=== PATIENT | female | born 1970 | race Asian ===

== ENCOUNTER 2019-02-06 19:14 | Inpatient (IN) | payer MEDICAID ==
[~2019-02-06] VITALS: Ht 162.6 cm; Wt 66.0 kg
[2019-02-07] MEDS ORDERED: NO HOME MEDS (00:03)
[2019-02-07] MEDS: normal saline 1000ml 1,000 ML IV SCH (01:19)
[2019-02-07 14:35] VITALS: BP 100/63
[2019-02-07 14:44] LABS: BASOPHILS % (AUTO) 0.7 % (0-1); EOSINOPHILS # (AUTO) 0.1 X10'3 (0-0.9); EOSINOPHILS % (AUTO) 1.7 % (0-6); HEMATOCRIT 34.4 % (35.0-45.0); LYMPHOCYTES # (AUTO) 1.2 X10'3 (1.1-4.8); LYMPHOCYTES % (AUTO) 23.9 % (21-51); MEAN CORPUSCULAR HEMOGLOBIN 32.7 PG (27.0-31.0); MEAN CORPUSCULAR HGB CONC 34.8 g/dL (33.0-36.5); MEAN PLATELET VOLUME 7.9 FL (7.4-10.4); MONOCYTES # (AUTO) 0.4 X10'3 (0-0.9); MONOCYTES % (AUTO) 8.7 % (2-12); NEUTROPHILS # (AUTO) 3.3 X10'3 (1.8-7.7); PLATELET COUNT 315 X10'3 (140-440); RED BLOOD COUNT 3.66 X10'6 (4.20-5.60); RED CELL DISTRIBUTION WIDTH 13.7 % (11.5-14.5); WHITE BLOOD COUNT 5.1 X10'3 (4.5-11.0)
[2019-02-07 15:00] LABS: ALANINE AMINOTRANSFERASE 256 U/L (12-78); ALBUMIN 3.1 G/DL (3.4-5.0); ALKALINE PHOSPHATASE 99 IU/L (46-116); ANION GAP 10 (8-16); ASPARTATE AMINO TRANSFERASE 146 U/L (10-37); BILIRUBIN,TOTAL 4.7 MG/DL (0.1-1.0); BLOOD UREA NITROGEN 12 MG/DL (7-18); BUN/CREATININE RATIO 15.8 (6.6-38.0); CALCIUM 8.4 MG/DL (8.5-10.1); CHLORIDE 106 MMOL/L (99-107); CREATININE 0.76 MG/DL (0.40-0.90); GLUCOSE 132 MG/DL (70-104); POTASSIUM 3.4 MMOL/L (3.5-5.1); SODIUM 142 MMOL/L (135-145); TOTAL CARBON DIOXIDE 26.1 MMOL/L (24-32); eGFR 82 ML/MIN
[2019-02-07 15:02] LABS: ALBUMIN/GLOBULIN RATIO 0.8 (1.1-1.5); TOTAL PROTEIN 6.9 G/DL (6.4-8.2)
--- NOTE | 2019-02-07 18:26 | NUR ---
Problems reprioritized. Patient report given, questions answered & plan of care reviewed with KYRIE NAVARRO.
[2019-02-07 19:00] VITALS: BP 94/50
[2019-02-07] MEDS ORDERED: diphenhydrAMINE 25mg capsule PO PRN (22:20)
[2019-02-07] MEDS: acetaminophen 325mg tablet PO PRN (22:33)
[2019-02-08] VITALS (21 sets, daily range): BP systolic 84–124; BP diastolic 46–73
[2019-02-08 07:17] LABS: BASOPHILS # (AUTO) 0.1 X10'3 (0-0.2); BASOPHILS % (AUTO) 0.9 % (0-1); EOSINOPHILS # (AUTO) 0.1 X10'3 (0-0.9); EOSINOPHILS % (AUTO) 2.3 % (0-6); HEMATOCRIT 34.7 % (35.0-45.0); LYMPHOCYTES # (AUTO) 1.4 X10'3 (1.1-4.8); LYMPHOCYTES % (AUTO) 24.8 % (21-51); MEAN CORPUSCULAR HEMOGLOBIN 32.6 PG (27.0-31.0); MEAN CORPUSCULAR HGB CONC 34.7 g/dL (33.0-36.5); MEAN CORPUSCULAR VOLUME 93.8 FL (78-98); MONOCYTES # (AUTO) 0.5 X10'3 (0-0.9); MONOCYTES % (AUTO) 8.5 % (2-12); NEUTROPHILS # (AUTO) 3.6 X10'3 (1.8-7.7); NEUTROPHILS % (AUTO) 63.5 % (42-75); PLATELET COUNT 315 X10'3 (140-440); RED CELL DISTRIBUTION WIDTH 13.5 % (11.5-14.5); WHITE BLOOD COUNT 5.6 X10'3 (4.5-11.0)
[2019-02-08 07:22] LABS: HBSAG SCREEN Negative (Negative); HEP A AB, IGM Negative (Negative); HEP B CORE AB, IGM Negative (Negative); HEPATITIS C ANTIBODY <0.1 s/co ratio (0.0-0.9)
[2019-02-08 07:29] LABS: ALANINE AMINOTRANSFERASE 293 U/L (12-78); ALKALINE PHOSPHATASE 102 IU/L (46-116); ANION GAP 9 (8-16); ASPARTATE AMINO TRANSFERASE 188 U/L (10-37); BILIRUBIN,TOTAL 5.6 MG/DL (0.1-1.0); BLOOD UREA NITROGEN 13 MG/DL (7-18); BUN/CREATININE RATIO 16.5 (6.6-38.0); CALCIUM 8.7 MG/DL (8.5-10.1); CHLORIDE 106 MMOL/L (99-107); CREATININE 0.79 MG/DL (0.40-0.90); GLUCOSE 99 MG/DL (70-104); POTASSIUM 4.1 MMOL/L (3.5-5.1); SODIUM 141 MMOL/L (135-145); TOTAL CARBON DIOXIDE 25.9 MMOL/L (24-32); eGFR 78 ML/MIN
[2019-02-08 07:32] LABS: ALBUMIN/GLOBULIN RATIO 0.8 (1.1-1.5); TOTAL PROTEIN 6.9 G/DL (6.4-8.2)
[2019-02-08] MEDS ORDERED: LIDOcaine Viscous 15ml cup ONE (11:16)
[2019-02-08] MEDS ORDERED: iohexol 300 MG/1 ML 50ml polymer ONE (11:16)
[2019-02-08] MEDS ORDERED: MIDAZolam 5mg/5ml vial ONE (11:16)
[2019-02-08] MEDS ORDERED: glucagon, human recombinant 1mg kit ONE (11:16)
[2019-02-08] MEDS ORDERED: fentaNYL/PF 50MCG/1 ML 2ML syringe ONE (11:16)
[2019-02-08] MEDS ORDERED: levoFLOXACIN-Levaquin 500mg/D5 100 ML IV ONE (13:38)
[2019-02-08] MEDS: ondansetron/PF 4mg/2ml inj IV PRN (15:47)
[2019-02-08 17:09] LABS: CARCINOEMBRYONIC ANTIGEN 2.1 ng/mL (0.0-4.7)
--- NOTE | 2019-02-08 18:16 | NUR ---
Problems reprioritized. Patient report given, questions answered & plan of care reviewed with KYRIE NAVARRO.
[2019-02-08] MEDS: normal saline 1000ml 1,000 ML IV SCH ×2 (19:03→19:04)
[2019-02-08] MEDS: acetaminophen 325mg tablet PO PRN (19:04)
--- NOTE | 2019-02-08 23:50 | NUR ---
Pt experiencing mid epigastric pain. Pt does not want anything IV. Labs were reviewed with Hospitalist animal nutrition consultant and pt was ordered Brad. Addendum: 02/09/19 at 0406 by Mandy Goodson RN Amended: Links added.
[2019-02-08] MEDS: HYDROcodone/acetaminophen 5mg/325mg tablet PO PRN (23:56)
[2019-02-09] VITALS: BP 104/65
[2019-02-09] MEDS: normal saline 1000ml 1,000 ML IV SCH ×4 (01:04→18:53)
[2019-02-09 04:00] VITALS: BP 100/47
[2019-02-09] MEDS: HYDROcodone/acetaminophen 5mg/325mg tablet PO PRN ×3 (04:42→14:32)
--- NOTE | 2019-02-09 06:09 | NUR ---
Problems reprioritized. Patient report given, questions answered & plan of care reviewed with Radha NAVARRO. Addendum: 02/09/19 at 0609 by Mandy Goodson RN Amended: Links added.
--- NOTE | 2019-02-09 06:37 | NUR ---
Patient in room [facility]. I have received report from Mandy NAVARRO and had the opportunity to ask questions and assume patient care.
[2019-02-09 07:20] VITALS: BP 91/50
[2019-02-09 07:23] LABS: BASOPHILS % (AUTO) 0.3 % (0-1); EOSINOPHILS # (AUTO) 0.1 X10'3 (0-0.9); EOSINOPHILS % (AUTO) 0.7 % (0-6); HEMATOCRIT 32.2 % (35.0-45.0); HEMOGLOBIN 11.3 g/dl (12.0-16.0); LYMPHOCYTES % (AUTO) 12.5 % (21-51); MEAN CORPUSCULAR HEMOGLOBIN 32.8 PG (27.0-31.0); MEAN CORPUSCULAR VOLUME 93.7 FL (78-98); MEAN PLATELET VOLUME 8.2 FL (7.4-10.4); MONOCYTES # (AUTO) 0.5 X10'3 (0-0.9); MONOCYTES % (AUTO) 6.4 % (2-12); NEUTROPHILS # (AUTO) 6.6 X10'3 (1.8-7.7); NEUTROPHILS % (AUTO) 80.1 % (42-75); PLATELET COUNT 291 X10'3 (140-440); RED BLOOD COUNT 3.44 X10'6 (4.20-5.60); RED CELL DISTRIBUTION WIDTH 13.4 % (11.5-14.5); WHITE BLOOD COUNT 8.3 X10'3 (4.5-11.0)
[2019-02-09 07:50] LABS: ALANINE AMINOTRANSFERASE 297 U/L (12-78); ALBUMIN 2.7 G/DL (3.4-5.0); ALKALINE PHOSPHATASE 94 IU/L (46-116); ANION GAP 10 (8-16); ASPARTATE AMINO TRANSFERASE 193 U/L (10-37); BILIRUBIN,TOTAL 5.9 MG/DL (0.1-1.0); BLOOD UREA NITROGEN 10 MG/DL (7-18); BUN/CREATININE RATIO 15.4 (6.6-38.0); CALCIUM 8.2 MG/DL (8.5-10.1); CHLORIDE 107 MMOL/L (99-107); CREATININE 0.65 MG/DL (0.40-0.90); GLUCOSE 89 MG/DL (70-104); POTASSIUM 3.7 MMOL/L (3.5-5.1); SODIUM 140 MMOL/L (135-145); TOTAL CARBON DIOXIDE 23.4 MMOL/L (24-32); eGFR > 90 ML/MIN
[2019-02-09 07:52] LABS: ALBUMIN/GLOBULIN RATIO 0.8 (1.1-1.5); TOTAL PROTEIN 6.3 G/DL (6.4-8.2)
[2019-02-09 08:55] LABS: LIPASE 23105 U/L (73-393)
[2019-02-09 12:00] VITALS: BP 90/50
[2019-02-09 18:00] VITALS: BP 114/69
--- NOTE | 2019-02-09 18:23 | NUR ---
Problems reprioritized. Patient report given, questions answered & plan of care reviewed with Torey NAVARRO.
--- NOTE | 2019-02-09 18:23 | NUR ---
Patient in room [facility]. I have received report from MELANIE Wilkins and had the opportunity to ask questions and assume patient care.
[2019-02-09] MEDS: acetaminophen 325mg tablet PO PRN (18:48)
[2019-02-09] MEDS: ondansetron/PF 4mg/2ml inj IV PRN (18:48)
--- NOTE | 2019-02-09 21:35 | NUR ---
lower posterior lobes diminished Addendum: 02/09/19 at 2140 by David Flores RN Amended: Links added.
[2019-02-10 00:55] VITALS: BP 100/50
[2019-02-10] MEDS: HYDROcodone/acetaminophen 5mg/325mg tablet PO PRN (01:27)
[2019-02-10] MEDS: normal saline 1000ml 1,000 ML IV SCH (03:32)
[2019-02-10 05:19] LABS: BASOPHILS % (AUTO) 0.2 % (0-1); EOSINOPHILS # (AUTO) 0.1 X10'3 (0-0.9); EOSINOPHILS % (AUTO) 1.3 % (0-6); HEMATOCRIT 31.4 % (35.0-45.0); HEMOGLOBIN 10.9 g/dl (12.0-16.0); LYMPHOCYTES # (AUTO) 1.2 X10'3 (1.1-4.8); LYMPHOCYTES % (AUTO) 18.4 % (21-51); MEAN CORPUSCULAR HEMOGLOBIN 32.9 PG (27.0-31.0); MEAN CORPUSCULAR HGB CONC 34.8 g/dL (33.0-36.5); MEAN CORPUSCULAR VOLUME 94.7 FL (78-98); MEAN PLATELET VOLUME 8.3 FL (7.4-10.4); MONOCYTES # (AUTO) 0.4 X10'3 (0-0.9); MONOCYTES % (AUTO) 6.9 % (2-12); NEUTROPHILS # (AUTO) 4.8 X10'3 (1.8-7.7); NEUTROPHILS % (AUTO) 73.2 % (42-75); PLATELET COUNT 280 X10'3 (140-440); RED BLOOD COUNT 3.32 X10'6 (4.20-5.60); RED CELL DISTRIBUTION WIDTH 13.3 % (11.5-14.5); WHITE BLOOD COUNT 6.5 X10'3 (4.5-11.0)
[2019-02-10 05:27] LABS: ALANINE AMINOTRANSFERASE 279 U/L (12-78); ALBUMIN 2.8 G/DL (3.4-5.0); ALKALINE PHOSPHATASE 99 IU/L (46-116); ANION GAP 9 (8-16); ASPARTATE AMINO TRANSFERASE 174 U/L (10-37); BILIRUBIN,TOTAL 5.7 MG/DL (0.1-1.0); BLOOD UREA NITROGEN 7 MG/DL (7-18); BUN/CREATININE RATIO 11.9 (6.6-38.0); CALCIUM 8.3 MG/DL (8.5-10.1); CHLORIDE 107 MMOL/L (99-107); CREATININE 0.59 MG/DL (0.40-0.90); GLUCOSE 85 MG/DL (70-104); POTASSIUM 3.4 MMOL/L (3.5-5.1); SODIUM 142 MMOL/L (135-145); TOTAL CARBON DIOXIDE 25.8 MMOL/L (24-32); eGFR > 90 ML/MIN
[2019-02-10 05:45] LABS: ALBUMIN/GLOBULIN RATIO 0.8 (1.1-1.5); TOTAL PROTEIN 6.4 G/DL (6.4-8.2)
--- NOTE | 2019-02-10 06:16 | NUR ---
Problems reprioritized. Patient report given, questions answered & plan of care reviewed with MELANIE Sharpe.
[2019-02-10 07:11] VITALS: BP 103/62
[2019-02-10] MEDS ORDERED: POTA20TA10 PO (08:53)
[2019-02-10] MEDS ORDERED: PANT40TA4 PO (08:53)
[2019-02-10 11:00] VITALS: BP 96/51
== END 2019-02-10 10:50 | disposition home or self-care (01) | DRG 282 ==
LOC: ER 19:15 → SUR 3N 02-07 13:52 → OBSVTOIN 02-10 08:35
PROVIDERS: ADMIT Internal Medicine; ATTEND Internal Medicine
PROC: 0FC98ZZ Extirpation of Matter from Common Bile Duct, Via Natural or Artificial Opening Endoscopic (ICD-10-PCS; principal; 2019-02-08)
PROC: BF101ZZ Fluoroscopy of Bile Ducts using Low Osmolar Contrast (ICD-10-PCS; 2019-02-08)
PROC: 0FPD8DZ Removal of Intraluminal Device from Pancreatic Duct, Via Natural or Artificial Opening Endoscopic (ICD-10-PCS; 2019-02-08)
PROC: 0F798DZ Dilation of Common Bile Duct with Intraluminal Device, Via Natural or Artificial Opening Endoscopic (ICD-10-PCS; 2019-02-08)
DX: K85.90 Acute pancreatitis without necrosis or infection, unspecified (principal); K83.8 Other specified diseases of biliary tract; R17 Unspecified jaundice; R93.2 Abnormal findings on diagnostic imaging of liver and biliary tract; R74.8 Abnormal levels of other serum enzymes; G47.9 Sleep disorder, unspecified; R94.5 Abnormal results of liver function studies; Z98.891 History of uterine scar from previous surgery; Z46.59 Encounter for fitting and adjustment of other gastrointestinal appliance and device
CPT/HCPCS: 36415; 43262; 43274; 74181; 80053; 82378; 83690; 85025; 86301; 86705; 86706; 86709; 86803; 87081; 87340; 93005; 96360; 99152; 99153; 99284; 99285; A4620; C1769; C2617; G0378; J1610; J1956; J2250; J2405; J3010; J7030; J7040; Q0163; Q9967

== ENCOUNTER 2019-03-10 10:06 | Day surgery (SDC) | payer MEDICAID ==
[~2019-03-10 10:06] MED LIST: PANT40TA4 PO; POTA20TA10 PO
[2019-03-10] MEDS ORDERED: fentaNYL/PF 50MCG/1 ML 2ML syringe ONE (10:13)
[2019-03-10] MEDS ORDERED: MIDAZolam 5mg/5ml vial ONE (10:13)
[2019-03-10] MEDS ORDERED: LIDOcaine Viscous 15ml cup ONE (10:13)
[2019-03-10] MEDS ORDERED: iohexol 300 MG/1 ML 50ml polymer ONE (10:14)
[2019-03-10] MEDS ORDERED: glucagon, human recombinant 1mg kit ONE (10:14)
== END 2019-03-10 10:41 | disposition home or self-care (01) ==
LOC: GI LAB 10:06
PROVIDERS: ATTEND Internal Medicine Gastroenterology
DX: Z46.59 Encounter for fitting and adjustment of other gastrointestinal appliance and device (principal); Z53.8 Procedure and treatment not carried out for other reasons
CPT/HCPCS: J1610; J2250; J3010; Q9967